=== PATIENT | female | born 1960 | race Hispanic/Latino ===

== ENCOUNTER 2017-11-27 13:48 | Inpatient (IN) | payer MEDICAID, SELFPAY ==
[2017-11-27 14:20] LABS: #Eosinphils 0.1 thou/uL (0.0-0.7); #Lymphocytes 1.2 thou/uL (1.20-3.40); #Monocytes 0.7 thou/uL (0.11-0.59); #Neutrophils 8.4 thou/uL (1.40-6.50); %Basophils 0.2 % (0.0-1.0); %Lymphocytes 11.7 % (21.0-51.0); %Monocytes 6.5 % (0.0-10.0); %Neutrophils 80.6 % (42.0-75.0); Hemoglobin 14.2 g/dL (12.0-16.0); Mean Corpuscular HGB CONC 35.4 g/dL (32.0-36.0); Mean Corpuscular Hemoglobin 33.5 pg (27.0-31.0); Mean Corpuscular Volume 94.7 fL (78.0-98.0); Mean Platelet Volume 7.2 fL (7.4-10.4); Platelet Count 340 thou/uL (130-400); RBC Distribution Width 11.7 % (11.5-14.5); Red Blood Cell (RBC) Count 4.24 mill/uL (4.20-5.40); White Blood Cell (WBC) Count 10.4 thou/uL (4.8-10.8)
[2017-11-27 14:41] LABS: ALT (SGPT) 12 U/L (8-55); AST (SGOT) 19 U/L (5-34); Albumin 4.3 g/dL (3.5-5.0); Alkaline Phosphatase 96 U/L (40-150); Anion Gap 15 mmol/L (10-20); BUN (Urea Nitrogen) 13 mg/dL (9.8-20.1); Bilirubin, Total 0.8 mg/dL (0.2-1.2); CK (CPK) 44 U/L (29-168); Calc. Creatinine Clearance 0 mL/min (70-130); Calcium 9.1 mg/dL (7.8-10.44); Carbon Dioxide 19 mmol/L (22-29); Chloride 107 mmol/L (98-107); Estimated GFR-MDRD 50; Globulin 2.8 g/dL (2.4-3.5); Glucose 115 mg/dL (70-105); Potassium 3.3 mmol/L (3.5-5.1); Protein, Total 7.1 g/dL (6.0-8.3); Sodium 138 mmol/L (136-145)
[2017-11-27 14:45] LABS: CKMB 0.5 ng/mL (0-6.6); Troponin I Less than 0.010 ng/mL (< 0.028)
--- NOTE | 2017-11-27 14:47 | RAD ---
CHEST 1 VIEW: HISTORY: Chest pain. COMPARISON: None. FINDINGS: There is abnormal airspace opacity in the lingula and left lower lobe. There is also mild faint opac ity in the right lower lobe. No pneumothorax. No acute osseous abnormality. IMPRESSION: Bibasilar airspace opacities concerning for infection. POS: [facility]
[2017-11-27] MEDS ORDERED: Morphine 4 MG/ML VIAL ONE (14:50)
[2017-11-27] MEDS ORDERED: cefTRIAXone\\ROCEPHIN 1 GM VIAL ONE (15:24)
[2017-11-27] MEDS ORDERED: Fentanyl 100 MCG/2 ML VIAL ONE (16:01)
[2017-11-27] MEDS ORDERED: Azithromycin 500 MG VIAL ONE (16:01)
[2017-11-27] MEDS ORDERED: Acetaminophen 325 MG TAB PO PRN (16:08)
[2017-11-27] MEDS ORDERED: Acetaminophen 650 MG Suppository PR PRN (16:08)
[2017-11-27] MEDS ORDERED: Nitroglycerin 0.4 MG TAB (25 Tab Bottle) PO PRN (16:08)
[2017-11-27] MEDS ORDERED: Lorazepam 2 MG/ML VIAL ONE (16:19)
--- NOTE | 2017-11-27 16:35 | HP ---
PRIMARY CARE PROVIDER: None. CHIEF COMPLAINT: Chest pain. HISTORY OF PRESENT ILLNESS: Ms. Jacinto is a pleasant 57-year-old lady who was seen at [facility] on 11/27/2017. She reports that she had an AK in 2005. She had a stent in the h eart at that time. She moved from [place] to [place] and does not have a rice cleaning machine tender or a primary ca re provider here. She is a current smoker, smoking 10 cigarettes a day. She reports that she is compliant with her med ications, but is unable to tell me the names of the medications. She does report that she takes an a spirin daily. She was cleaning the house earlier today around noon when she started having chest pain. She describ es it as retrosternal, tightness, 10/10, radiating to the left arm and to the jaw. She reports that the pain felt similar to what she had when she had heart attack in 2005. She reports shortness of br eath. She reports nausea. She denies lightheadedness. She reports that she has received morphine a nd her pain is currently 5/10, but it keeps coming on and off. She denies any fevers or chills. She reports chronic cough that has not changed recently. She denies any sputum. REVIEW OF SYSTEMS: All other systems reviewed and found to be negative. PAST MEDICAL HISTORY: Coronary artery disease and hypertension. PAST SURGICAL HISTORY: Tubal ligation. SOCIAL HISTORY: The patient denies alcohol use or recreational drug use. Smokes half a pack of ciga rettes a day. FAMILY HISTORY: Myocardial infarction in her father at age 55. ALLERGIES: No known drug allergies. CURRENT MEDICATIONS: The patient is unable to recall the names of her medications. PHYSICAL EXAMINATION: GENERAL: Ms. Jacinto is awake and alert, in mild distress. VITAL SIGNS: Blood pressure is 108/87, pulse 85, respiratory rate 22, and oxygen saturation 95% on 3 liters of oxygen. She is afebrile. EYES: No scleral icterus. No conjunctival pallor. ENT: Moist mucosal membranes, no oropharyngeal erythema or exudates. NECK: Supple, nontender, trachea is midline. RESPIRATORY: Accessory muscles of breathing are not active. Chest wall movements are symmetric bila terally. LUNGS: Clear to auscultation without wheeze, rhonchi or crepitations. CARDIOVASCULAR: S1 and S2 are heard, regular. Peripheral pulses palpable. No carotid bruit, no per icardial rub. ABDOMEN: Soft, nontender, bowel sounds heard, no hepatomegaly, no splenomegaly. NEUROLOGIC: Cranial nerves II through XII intact. Deep tendon reflexes are 2+. MUSCULOSKELETAL: Power is 5/5 in all 4 extremities. SKIN: Multiple tattoos. No rashes or subcutaneous nodules. LYMPHATIC: No cervical lymphadenopathy. PSYCHIATRIC: Normal mood, normal affect, patient is oriented to person, place, and time. LABORATORY DATA AND IMAGING: Ms. Jacinto's labs and investigations were reviewed. I reviewed her tan ctrocardiogram, which shows normal sinus rhythm, no ST changes to suggest an acute coronary syndrome. I also reviewed her chest x-ray, which shows bibasilar infiltrates. She has normal white count of 10,400, neutrophilia with 80.6% neutrophils, normal hemoglobin, normal platelet count, D-dimer less t maddox 0.27, normal sodium, decreased potassium of 3.8, elevated creatinine of 1.12, normal liver profil e, normal troponin I and normal BNP. ASSESSMENT AND PLAN: Ms. Jacinto is a pleasant 57-year-old lady who was seen at [facility] on 11/27/2017. Her problem list includes: 1. Chest pain: She does report that her chest pain is worse with deep breathing. Having said that, her presentation is most suggestive of unstable angina. Patient will be admitted to the hospital fo r further management. 2. Unstable angina: Patient will be admitted to the hospital for telemetry monitoring and recheckin g her troponin I. Cardiology service will be consulted. 3. Pneumonia: She does have bibasilar infiltrates on chest x-ray. However, she is afebrile and has a normal white count. She has been started on antibiotics, which I will continue for now. 4. Tobacco abuse: Patient has been counseled regarding tobacco cessation. We will start patient on nicotine replacement therapy. 5. Hypokalemia: Potassium will be replaced. LEVEL OF RISK: High. LEVEL OF COMPLEXITY: High.
[2017-11-27] MEDS ORDERED: Lidocaine 1% (PF) 30 ML VIAL ONE (17:00)
[2017-11-27] MEDS ORDERED: Iopamidol 370 76% 100 ML VIAL ONE (19:22)
[2017-11-27] MEDS ORDERED: Acetaminophen/Codeine 30-300mg Tablet PO PRN ×2 (20:00)
[2017-11-27] MEDS ORDERED: Sodium Chloride 0.9% 200 ML IV SCH (20:00)
[2017-11-27] MEDS ORDERED: Nitroglycerin 0.4 MG TAB (25 Tab Bottle) SL PRN (20:00)
[2017-11-27] MEDS ORDERED: traMADol HCl 50 MG TAB PO PRN (20:00)
[2017-11-27] MEDS: Nicotine 14 MG PATCH TD SCH (21:00)
[2017-11-27 21:47] VITALS: BMI 30.1
--- NOTE | 2017-11-28 01:12 | CON ---
DATE OF CONSULTATION: 11/27/2017 INDICATION FOR CONSULTATION: A 57-year-old female moved here recently from [place], who had stent placement in 2005 to the coronary arteries. She complains of chest pain, which started around 12 or 1 o'clock today. She says it feels like the same pain that she had when she underwent angioplasty a nd stent placement . It has been over a year ago since she saw her oil filters inspector in [place]. She describes it being a pressure pain. She does have risk factors, which include hypertension, hyp ercholesterolemia, diabetes, tobacco abuse, and family history of heart disease. Her EKG is unremark able and the enzymes are also unremarkable. The patient continued to have excruciating pain. She is tearful during the examination. PAST MEDICAL HISTORY: Significant for COPD, tonsillectomy, cholecystectomy, tubal ligation, right wr ist fracture, right ankle fracture, and coronary artery disease with angioplasty and stent placement. SOCIAL HISTORY: She is . She has 4 children. No heart disease. She smokes half a pack a d ay. She has occasional alcohol use. FAMILY HISTORY: Positive for father who of a myocardial infarction. ALLERGIES: None. PRESENT MEDICATIONS: She is unaware of which medicine she is presently taking, but she says she has been taking her medicines since moving here. REVIEW OF SYSTEMS: Twelve-point review of systems is unremarkable except for some shortness of breat h and chest pain. PHYSICAL EXAMINATION: GENERAL: Reveals a middle-aged female. VITAL SIGNS: Blood pressure 141/79, heart rate is 69 and regular. HEENT: Shows the head to be normocephalic and atraumatic. Carotid pulses are present. I do not hea r any bruits. There is no obvious JVD. The thyroid is not enlarged. CHEST: Clear to auscultation. I did not hear any rales, rhonchi, or wheezing. CARDIOVASCULAR: Reveals regular rate and rhythm with normal S1, S2. There is no S3, S4. There were no significant murmurs, heaves, thrills, bruits, or rubs noted. ABDOMEN: Soft and nontender with positive bowel sounds. No organomegaly or masses are noted. Femor al pulses are present, somewhat decreased but present. EXTREMITIES: No clubbing, cyanosis, or edema. Pedal pulses are difficult to palpate. NEUROLOGIC: She appears to be intact. She is however tearful and complaining of significant chest d iscomfort. LABORATORY DATA: As noted above, her EKG was unremarkable. Her cardiac enzymes thus far are also un remarkable. Her other laboratory data are within reasonable normal limits. IMPRESSION: 1. Probable unstable angina despite having a normal EKG. With her history of coronary artery diseas e and the degree of pain that she is suffering, I would advise her to undergo cardiac catheterization to rule out evidence of underlying coronary artery disease. We will take her to the cardiac cath la b for evaluation. I have explained to her the procedure and the risks to include bleeding, infection , possibly a myocardial infarction, CVA, renal insufficiency, allergic contrast reaction, and even th e possibility of and she understands and agrees to proceed. We will plan for cardiac catheteri zation today to rule out progression of coronary artery disease. 2. History of tobacco abuse. She will be strongly encouraged to stop smoking. 3. Hypertension. This is under reasonable control at this time. 4. Hypercholesterolemia. She should continue her statin medications. 5. Diabetes. This will be dealt with by the primary care service.
[2017-11-28] MEDS: Aspirin 325 mg Enteric Coated Tablet PO SCH (08:35)
[2017-11-28] MEDS: Enoxaparin Sodium 40 MG/0.4 ML SYRINGE SC SCH (08:35)
[2017-11-28] MEDS ORDERED: Enoxaparin Sodium 40 MG/0.4 ML SYRINGE SC SCH (09:00)
[2017-11-28] MEDS ORDERED: Aspirin 325 mg Enteric Coated Tablet PO SCH (09:00)
--- NOTE | 2017-11-28 09:08 | PDOC.CTH ---
<Jeanie Reveles - Last Filed: 11/28/17 16:35> Cardiology Progress Note - Subjective The pt seen and examined. Received total 2 bolus of fluid for hypotension last night. She denied dizziness or lightheadedness. - Objective Vital Signs Temp Pulse Resp BP Pulse Ox 11/28/17 08:00 98.1 F 61 18 94/59 L 96 11/28/17 04:00 97.4 F L 54 L 18 89/54 L 98 11/27/17 22:46 96 - Physical Examination General/Neuro: alert & oriented x3 Neck: no JVD present Lungs: CTA Heart: RRR Abdomen: soft Extremities: other: (No edmea; no hematoma or erhythma to Lt fem site) - Labs Result Diagrams: 11/27/17 14:10 11/27/17 14:10 Troponin/CKMB CK-MB (CK-2) 0.5 ng/mL (0-6.6) 11/27/17 14:10 Troponin I Less than 0.010 ng/mL (< 0.028) 11/27/17 14:10 - Assessment/Plan 1. CAD with hx of stent in RCA in 2005 - s/p LHC on 11/27/17 with 10% stenosis in mid RCA and 20% in dis RCA; Stable; on ASA 325mg; not on BBlocker or MICHELLE/ARE due to hypotensive; will start those med once her VS is stable 2. HTN - receive total 2 bolus fluid for hypotensive during last night. Cont. to monitor 3. Hyperlipidemia - may resume her cholesterol medication once she d/c home. 4. DM type 2 - managed by PCP 5. COPD - stable with RA 6. Tobacco abuse - smoking cessation education given to the pt and family MAR reviewed * From Cardiac standpoint, the pt 's cardiovascular is stable. We will sign off. Please feel free to call us. Review of Systems - Review of Systems Constitutional: reports: no symptoms reported EENTM: reports: no symptoms reported Respiratory: reports: no symptoms reported Cardiac (ROS): reports: no symptoms reported ABD/GI: reports: no symptoms reported : reports: no symptoms reported Musculoskeletal: reports: no symptoms reported <Alison Santos - Last Filed: 11/28/17 18:51> Cardiology Progress Note - Objective Vital Signs Temp Pulse Resp BP BP Pulse Ox 11/28/17 16:00 98.0 F 77 18 113/75 95 11/28/17 10:30 98.1 F 80 18 100/68 96 11/28/17 08:00 98.1 F 61 18 94/59 L 96 Admit Weight 170 lb 1.6 oz Weight 170 lb 1.6 oz 11/27/17 11/28/17 11/29/17 06:59 06:59 06:59 Intake Total 720 Balance 720 - Labs Result Diagrams: 11/27/17 14:10 11/27/17 14:10 Troponin/CKMB CK-MB (CK-2) 0.5 ng/mL (0-6.6) 11/27/17 14:10 Troponin I Less than 0.010 ng/mL (< 0.028) 11/27/17 14:10 - Assessment/Plan Pt. seen and eval. by me. I agree with the A/P by the BACK MAKER. Her cardiac status is stable. I will sign off. She can f/u in the office as an outpt.
--- NOTE | 2017-11-28 11:57 | PDOC.PN ---
- Subjective Encounter Start Date: 11/28/17 Encounter Start Time: 07:20 Pt seen for followup re: pneumonia. Denies shortness of breath, fevers or chills. Chest pain is better. - Objective MAR Reviewed: Yes Vital Signs & Weight: Vital Signs (12 hours) Temp Pulse Resp BP Pulse Ox 11/28/17 10:30 98.1 F 80 18 100/68 96 11/28/17 08:00 98.1 F 61 18 94/59 L 96 11/28/17 04:00 97.4 F L 54 L 18 89/54 L 98 Result Diagrams: 11/27/17 14:10 11/27/17 14:10 EKG Reviewed by me: Yes (Tele: NSR) Phys Exam - Physical Examination Obese HEENT: moist MMs, sclera anicteric, oral pharynx no lesions, 2+ tonsils Neck: no nodes, no JVD, supple, full ROM Respiratory: no rales, no rhonchi, wheezing present Cardiovascular: RRR, no rub S1, S2 Gastrointestinal: soft, non-tender, no distention, positive bowel sounds Neurological: moves all 4 limbs Psychiatric: normal affect, A&O x 3 Dx/Plan (1) Chest pain Code(s): R07.9 - CHEST PAIN, UNSPECIFIED Status: Acute Comment: likely due to pneumonia. cath -ve (2) Pneumonia Code(s): J18.9 - PNEUMONIA, UNSPECIFIED ORGANISM Status: Acute Comment: step down to oral antibiotics and observe (3) DM2 (diabetes mellitus, type 2) Status: Chronic Comment: start accuchecks, insulin sliding scale (4) Tobacco abuse Code(s): Z72.0 - TOBACCO USE Status: Chronic Comment: continue nicotine replacement therapy - Plan * . Review of Systems - Review of Systems Constitutional: negative: fever, chills, sweats, weakness, malaise Respiratory: Cough. negative: Dry, Shortness of Breath, Hemoptysis, SOB with Excertion, Pleuritic Pain, Sputum, Wheezing Cardiovascular: chest pain. negative: palpitations, orthopnea, paroxysmal nocturnal dyspnea, edema, light headedness Gastrointestinal: negative: Nausea, Vomiting, Abdominal Pain, Diarrhea, Constipation, Melena, Hematochezia Genitourinary: negative: Dysuria, Frequency, Incontinence, Hematuria, Retention Musculoskeletal: negative: Neck Pain, Shoulder Pain, Arm Pain, Back Pain, Hand Pain, Leg Pain, Foot Pain - Medications/Allergies Allergies/Adverse Reactions: Allergies Allergy/AdvReac Type Severity Reaction Status Date / Time No Known Drug Allergies Allergy Verified 11/27/17 16:02 Medications: Current Medications Acetaminophen (Tylenol) 650 mg PO Q4H PRN PRN Reason: Headache/Fever or Pain Acetaminophen (Tylenol) 650 mg HI Q4H PRN PRN Reason: Headache/Fever or Pain Acetaminophen/Codeine Phosphate (Tylenol #3) 1 tab PO Q4H PRN PRN Reason: Mild Pain (1-3) Acetaminophen/Codeine Phosphate (Tylenol #3) 2 tab PO Q4H PRN PRN Reason: Moderate Pain (4-6) Aspirin (Ecotrin) 325 mg PO DAILY [facility] Last Admin: 11/28/17 08:35 Dose: 325 mg Enoxaparin Sodium (Lovenox) 40 mg SC 0900 [facility] Last Admin: 11/28/17 08:35 Dose: 40 mg Azithromycin 500 mg/ Sodium (Chloride) 250 mls @ 250 mls/hr IVPB 1500 YULY Ceftriaxone Sodium 1 gm/ (Sodium Chloride) 100 mls @ 200 mls/hr IVPB 1600 [facility] Sodium Chloride (Normal Saline 0.9%) 200 mls @ 0 mls/hr IV ONE YULY PRN Reason: As Directed Stop: 11/28/17 20:01 Last Admin: 11/28/17 00:10 Dose: 200 mls Nicotine (Nicoderm Patch) 14 mg TD Q24HR [facility] Last Admin: 11/27/17 21:00 Dose: Not Given Nitroglycerin (Nitrostat) 0.4 mg PO Q5MIN PRN PRN Reason: Chest Pain Nitroglycerin (Nitrostat) 0.4 mg SL Q5MIN PRN PRN Reason: Chest Pain Tramadol HCl (Ultram) 50 mg PO Q6H PRN PRN Reason: Moderate Pain (4-6)
[2017-11-28] MEDS ORDERED: HumaLOG 300 UNITS/3 ML VIAL SC PRN (12:04)
[2017-11-28] MEDS ORDERED: Dextrose 5% in Water 1,000 ML IV PRN (12:04)
[2017-11-28] MEDS ORDERED: Dextrose 50% Abboject 50 ML SYRINGE SLOW IVP PRN (12:04)
[2017-11-28] MEDS ORDERED: Cefdinir 300 MG CAP PO SCH (12:15)
[2017-11-28] MEDS ORDERED: Azithromycin 500 MG in Sodium Chloride 0.9% 250 ML 250 ML IVPB SCH (15:00)
[2017-11-28] MEDS ORDERED: cefTRIAXone\\ROCEPHIN 1 GM in Sodium Chloride 0.9% 100 ML IVPB SCH (16:00)
[2017-11-28] MEDS: Nicotine 14 MG PATCH TD SCH (20:07)
[2017-11-28] MEDS: Cefdinir 300 MG CAP PO SCH (20:08)
[2017-11-29 05:16] LABS: #Eosinphils 0.4 thou/uL (0.0-0.7); #Monocytes 0.6 thou/uL (0.11-0.59); #Neutrophils 3.9 thou/uL (1.40-6.50); %Basophils 0.7 % (0.0-1.0); %Eosinophils 5.5 % (0.0-10.0); %Lymphocytes 28.9 % (21.0-51.0); %Monocytes 8.5 % (0.0-10.0); %Neutrophils 56.3 % (42.0-75.0); Hemoglobin 12.4 g/dL (12.0-16.0); Mean Corpuscular HGB CONC 34.3 g/dL (32.0-36.0); Mean Corpuscular Hemoglobin 33.1 pg (27.0-31.0); Mean Corpuscular Volume 96.5 fL (78.0-98.0); Mean Platelet Volume 7.4 fL (7.4-10.4); Platelet Count 311 thou/uL (130-400); RBC Distribution Width 11.7 % (11.5-14.5); Red Blood Cell (RBC) Count 3.74 mill/uL (4.20-5.40); White Blood Cell (WBC) Count 6.9 thou/uL (4.8-10.8)
[2017-11-29 05:21] LABS: Anion Gap 9 mmol/L (10-20); BUN (Urea Nitrogen) 6 mg/dL (9.8-20.1); Calc. Creatinine Clearance 92 mL/min (70-130); Calcium 8.4 mg/dL (7.8-10.44); Carbon Dioxide 27 mmol/L (22-29); Chloride 107 mmol/L (98-107); Estimated GFR-MDRD 73; Glucose 101 mg/dL (70-105); Potassium 3.6 mmol/L (3.5-5.1); Sodium 139 mmol/L (136-145)
[2017-11-29] MEDS: Cefdinir 300 MG CAP PO SCH (08:23)
[2017-11-29] MEDS: Enoxaparin Sodium 40 MG/0.4 ML SYRINGE SC SCH (08:23)
[2017-11-29] MEDS: Aspirin 325 mg Enteric Coated Tablet PO SCH (08:23)
[2017-11-29 16:32] VITALS: BP 107/71; TEMP 98.4
--- NOTE | 2017-11-29 21:31 | DIS ---
PRIMARY CARE PROVIDER: None. DATE OF ADMISSION: 11/27/2017 DATE OF DISCHARGE: 11/29/2017 CONDITION OF PATIENT ON THE DAY OF DISCHARGE: Stable. I assessed Ms. Jacinto on the day of discharge . She denies any chest pain or shortness of breath. She denies any fever, chills or cough. Vital s igns are stable. S1 and S2 are heard, regular. Lungs are clear to auscultation bilaterally. CONSULTATIONS DURING THIS HOSPITALIZATION: Cardiology, Dr. Santos. HOSPITAL COURSE: Ms. Jacinto is a pleasant 57-year-old lady who was admitted to [facility] on 11/27/2017 for chest pain. Please refer to my history and physical note dated 2017 for further details. She was seen by Cardiology Service for possible unstable angina. She unde rwent cardiac catheterization, which showed single vessel coronary artery disease, prior stent in the distal RCA with less than 20% in-stent restenosis. She had ejection fraction of 60% to 65%. She also had evidence of pneumonia on chest x-ray and was started on antibiotics. She improved clini fabio and is being discharged home in a stable condition. She has been advised to stop smoking. She has been advised to resume her home medications including diabetes medications as well as cholesterol medications. She is unable to recall the names of those medications at this time, but will start them when she goes home. DISCHARGE MEDICATIONS: In addition to her home medications, she is advised to take aspirin 325 mg da juan m, Omnicef 300 mg 2 times a day for 7 more days and nicotine 14 mg patch daily. On the day of discharge, she has white count 6900, hemoglobin 12.4, platelet count 311,000, normal so dium, normal potassium, and creatinine 0.80. DISCHARGE DESTINATION: Home. TOTAL AMOUNT OF TIME SPENT COORDINATING THIS DISCHARGE: 33 minutes.
== END 2017-11-29 12:48 | disposition home or self-care (01) | DRG 286 ==
LOC: ERS 13:48 → 2NO 19:00 → T4-B 11-28 10:41
PROVIDERS: ADMIT Internal Medicine; ATTEND Internal Medicine
PROC: 4A023N7 Measurement of Cardiac Sampling and Pressure, Left Heart, Percutaneous Approach (ICD-10-PCS; principal; 2017-11-27)
PROC: B2111ZZ Fluoroscopy of Multiple Coronary Arteries using Low Osmolar Contrast (ICD-10-PCS; 2017-11-27)
PROC: B2151ZZ Fluoroscopy of Left Heart using Low Osmolar Contrast (ICD-10-PCS; 2017-11-27)
DX: I25.110 Atherosclerotic heart disease of native coronary artery with unstable angina pectoris (principal); J18.9 Pneumonia, unspecified organism; T82.855A Stenosis of coronary artery stent, initial encounter; F17.210 Nicotine dependence, cigarettes, uncomplicated; I10 Essential (primary) hypertension; E87.6 Hypokalemia; E11.9 Type 2 diabetes mellitus without complications; J44.9 Chronic obstructive pulmonary disease, unspecified; I25.2 Old myocardial infarction; Z82.49 Family history of ischemic heart disease and other diseases of the circulatory system
CPT/HCPCS: 36415; 36416; 71045; 80048; 80053; 82550; 82553; 83605; 83880; 84484; 85025; 85379; 87040; 93005; 93306; 93458; 94640; 94760; 96365; 96367; 96375; C1769; J0456; J0696; J1644; J1650; J2001; J2060; J2270; J3010; J7050; J7620